=== PATIENT | male | born 2000 | race Caucasian/White ===

== ENCOUNTER 2022-09-04 23:12 | Emergency (ER) | payer OTHER ==
[~2022-09-04] VITALS: Ht 177.8 cm; Wt 86.0 kg
[2022-09-05] MEDS ORDERED: KETOROLAC 60MG/2ML VIAL IM ONE (01:15)
[2022-09-05] MEDS ORDERED: CYCL5TAB MT (01:15)
[2022-09-05] MEDS ORDERED: CYCLOBENZAPRINE 10MG TABLET PO SCH (01:15)
[2022-09-05 01:41] VITALS: BP 128/56
== END 2022-09-05 01:40 | disposition home or self-care (01) ==
LOC: ER 23:12
DX: S39.012A Strain of muscle, fascia and tendon of lower back, initial encounter (principal); X58.XXXA Exposure to other specified factors, initial encounter; Y93.89 Activity, other specified; Y92.89 Other specified places as the place of occurrence of the external cause; Y99.8 Other external cause status
CPT/HCPCS: 96372; 99283; J1885

== ENCOUNTER 2022-12-18 20:53 | Emergency (ER) | payer OTHER ==
[~2022-12-18] VITALS: Ht 175.3 cm; Wt 79.3 kg
[~2022-12-18 20:53] MED LIST: CYCL5TAB MT
[2022-12-18 20:55] VITALS: PULSE 118; RESP 16
[2022-12-18 20:56] VITALS: BP 120/79; TEMP 97.5; O2SAT 100
== END 2022-12-18 22:04 | disposition left against medical advice (07) ==
LOC: ER 20:53
DX: M79.89 Other specified soft tissue disorders (principal); Z53.21 Procedure and treatment not carried out due to patient leaving prior to being seen by health care provider
CPT/HCPCS: 99281